=== PATIENT | male | born 1950 | race Caucasian/White ===

== ENCOUNTER 2017-05-29 22:39 | Emergency (ER) | payer OTHER ==
[~2017-05-29] VITALS: Ht 170.2 cm; Wt 85.0 kg
[~2017-05-29 22:39] MED LIST: ASPI325T PO; CLOP75 PO; COQ10 PO; METO50TA PO; NITR.6 SL; REST15CA PO; ZOCO80TA PO
[2017-05-29 22:41] VITALS: BP 170/89; PULSE 90; RESP 16; TEMP 97.7; O2SAT 98
[2017-05-29] MEDS ORDERED: ZOCO80TA PO (23:57)
[2017-05-30] MEDS ORDERED: ASPI325T PO
[2017-05-30] MEDS ORDERED: DIAZ5 PO
[2017-05-30] MEDS ORDERED: [UNRECOGNIZED DRUG - CODE] SL
[2017-05-30] MEDS ORDERED: METO50TA PO
[2017-05-30] MEDS ORDERED: PLAV75TA29 PO
--- NOTE | 2017-05-30 00:30 | PD ---
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 PT STATES TETANUS UTD PT STATES NO HEP B OR C VAX PT STATES ONLY PMHX POSITIVE FOR HEART STENTS PFSH Past Medical History Blood Disorders: No Cancer: No Cardiac Catheterization: Yes (STENT X3) Cardiovascular Problems: No Chest Pain: Yes (CAME IN WITH CP) Endocrine: No Genitourinary: No Immune Disorder: No Musculoskeletal: Yes (LEFT SHOULDER PAIN STARTED 6 MONTHS AGO) Neurologic: No Psychiatric: No Reproductive: No Respiratory: No Myocardial Infarction: Yes Tetanus Vaccination: > 5 Years Influenza Vaccination: No Social History Alcohol Use: Yes (WINE A GLASS A NIGHT) Tobacco Use: No Substance Use: No Allergies-Medications (Allergen,Severity, Reaction): Coded Allergies: No Known Allergies (Verified , 05/29/17) Reported Meds & Prescriptions Reported Meds & Active Scripts Active Kaletra (Lopinavir/Ritonavir) 200-50 Mg Tab 2 Tab PO Q12HR 23 Days Fill this prescription for a 23 day supply of Kaletra ONLY if advised to do so by either Employee Health OR the Emergency Department. Zidovudine 100 Mg Cap 300 Mg PO Q12HR 23 Days Lamivudine 150 Mg Tab 150 Mg PO BID 23 Days Kaletra (Lopinavir/Ritonavir) 200-50 Mg Tab 2 Tab PO Q12HR Fill this 5 day prescription first & begin taking Kaletra 12 hours after the first dose received in the Emergency Department as prescribed. Zidovudine 100 Mg Cap 300 Mg PO Q12HR 5 Days Lamivudine 150 Mg Tab 150 Mg PO BID Reported Valium (Diazepam) 5 Mg Tab 5 Mg PO HS PRN Nitroglycerin SL (Nitroglycerin) 0.6 Mg Subl 0.6 Mg SL DIRECTED PRN ONE TABLET UNDER THE TONGUE NEEDED FOR CHEST PAIN, MAY REPEAT EVERY FIVE MINUTES FOR A TOTAL OF 3 DOSES OR CALL 911 IF NO RELIEF Plavix (Clopidogrel Bisulfate) 75 Mg Tab 75 Mg PO DAILY Aspirin 325 Mg Tab 325 Mg PO DAILY Metoprolol Tartrate 50 Mg Tab 50 Mg PO BID Zocor (Simvastatin) 80 Mg Tab 80 Mg PO HS [Coq10] 100 Mg PO DAILY Review of Systems Except as stated in HPI: all other systems reviewed are Neg Physical Exam Narrative GENERAL: SKIN: Warm and dry. HEAD: Atraumatic. Normocephalic. EYES: Pupils equal and round. No scleral icterus. No injection or drainage. ENT: No nasal bleeding or discharge. Mucous membranes pink and moist. NECK: Trachea midline. No JVD. CARDIOVASCULAR: Regular rate and rhythm. RESPIRATORY: No accessory muscle use. Clear to auscultation. Breath sounds equal bilaterally. GASTROINTESTINAL: Abdomen soft, non-tender, nondistended. Hepatic and splenic margins not palpable. MUSCULOSKELETAL: Extremities without clubbing, cyanosis, or edema. No obvious deformities. RIGHT HAND PUNCTURE WOUND WHICH IS NOT ACTIVE BLEEDING NEUROLOGICAL: Awake and alert. No obvious cranial nerve deficits. Motor grossly within normal limits. Five out of 5 muscle strength in the arms and legs. Normal speech. PSYCHIATRIC: Appropriate mood and affect; insight and judgment normal. Data Data Last Documented VS Vital Signs Date Time Temp Pulse Resp B/P (MAP) Pulse Ox O2 Delivery O2 Flow Rate FiO2 05/30/17 01:07 05/29/17 22:41 97.7 90 16 98 Room Air Orders Orders Complete Blood Count With Diff (05/30/17 00:30) Comprehensive Metabolic Panel (05/30/17 00:30) Lamivudine (Epivir) (05/30/17 00:45) Zidovudine (Retrovir) (05/30/17 00:45) Lopinavir-Ritonavir 200-50 Mg (Kaletra 2 (05/30/17 00:45) Hepatitis B Vaccine (05/30/17 00:45) Labs Laboratory Tests Test 05/30/17 00:45 White Blood Count 8.6 TH/MM3 Red Blood Count 4.81 MIL/MM3 Hemoglobin 15.4 GM/DL Hematocrit 45.2 % Mean Corpuscular Volume 94.0 FL Mean Corpuscular Hemoglobin 32.1 PG Mean Corpuscular Hemoglobin Concent 34.1 % Red Cell Distribution Width 12.9 % Platelet Count 193 TH/MM3 Mean Platelet Volume 7.9 FL Neutrophils (%) (Auto) 61.2 % Lymphocytes (%) (Auto) 29.7 % Monocytes (%) (Auto) 7.5 % Eosinophils (%) (Auto) 1.2 % Basophils (%) (Auto) 0.4 % Neutrophils # (Auto) 5.2 TH/MM3 Lymphocytes # (Auto) 2.5 TH/MM3 Monocytes # (Auto) 0.6 TH/MM3 Eosinophils # (Auto) 0.1 TH/MM3 Basophils # (Auto) 0.0 TH/MM3 CBC Comment DIFF FINAL Differential Comment Blood Urea Nitrogen 24 MG/DL Creatinine 0.94 MG/DL Random Glucose 96 MG/DL Total Protein 8.2 GM/DL Albumin 4.3 GM/DL Calcium Level 9.0 MG/DL Alkaline Phosphatase 89 U/L Aspartate Amino Transf (AST/SGOT) 31 U/L Alanine Aminotransferase (ALT/SGPT) 41 U/L Total Bilirubin 1.0 MG/DL Sodium Level 139 MEQ/L Potassium Level 3.7 MEQ/L Chloride Level 107 MEQ/L Carbon Dioxide Level 24.9 MEQ/L Anion Gap 7 MEQ/L Estimat Glomerular Filtration Rate 80 ML/MIN MDM Medical Decision Making Medical Screen Exam Complete: Yes Emergency Medical Condition: Yes Medical Record Reviewed: Yes Differential Diagnosis needle stick exposure Narrative Course had a clear discussion with patient, in which patient stated that he was not vaccinated against hep b, i made patient aware of need for vaccination as well as initiating hiv triple therapy until threat of transmission is negative. advised that workers comp will adivised further testing to be done, [facility] [place] will initiate first test but multiple blood tests need to be done/perormed...needle stick exposure packet handed to patient.. Diagnosis Primary Impression: NEEDLE STICK EXPOSURE Scripts Lopinavir-Ritonavir (Kaletra) 200-50 Mg Tab 2 TAB PO Q12HR for Mgmt Viral Infection for 23 Days, #92 TAB 0 Refills Fill this prescription for a 23 day supply of Kaletra ONLY if advised to do so by either Employee Health OR the Emergency Department. Prov: Timoteo Swenson MD 05/30/17 Zidovudine (Zidovudine) 100 Mg Cap 300 MG PO Q12HR for Mgmt Viral Infection for 23 Days, #138 CAP 0 Refills Prov: Timoteo Swenson MD 05/30/17 Lamivudine (Lamivudine) 150 Mg Tab 150 MG PO BID for Mgmt Viral Infection for 23 Days, #46 TAB 0 Refills Prov: Timoteo Swenson MD 05/30/17 Lopinavir-Ritonavir (Kaletra) 200-50 Mg Tab 2 TAB PO Q12HR for Mgmt Viral Infection, #20 TAB 0 Refills Fill this 5 day prescription first & begin taking Kaletra 12 hours after the first dose received in the Emergency Department as prescribed. Prov: Timoteo Swenson MD 05/30/17 Zidovudine (Zidovudine) 100 Mg Cap 300 MG PO Q12HR for Mgmt Viral Infection for 5 Days, #30 CAP 0 Refills Prov: Timoteo Swenson MD 05/30/17 Lamivudine (Lamivudine) 150 Mg Tab 150 MG PO BID for Mgmt Viral Infection, #10 TAB 0 Refills Prov: Timoteo Swenson MD 05/30/17 Disposition: 01 DISCHARGE HOME Condition: Stable Timoteo Swenson MD May 30, 2017 00:30
[2017-05-30] MEDS ORDERED: LOPINAVIR/RITONAVIR 200 MG/50 MG TAB PO ONE (00:45)
[2017-05-30] MEDS ORDERED: ZIDOVUDINE 100 MG CAP PO ONE (00:45)
[2017-05-30] MEDS ORDERED: KALETRA200 PO ×2 (00:50→00:53)
[2017-05-30] MEDS ORDERED: ZIDO100C4 PO ×2 (00:50→00:53)
[2017-05-30] MEDS ORDERED: LAMI1TAB7 PO ×2 (00:50→00:53)
[2017-05-30 00:59] LABS: AUTOMATED NEUTROPHIL # 5.2 TH/MM3 (1.8-7.7); BASOPHIL % 0.4 % (0.0-2.0); EOSINOPHIL # 0.1 TH/MM3 (0-0.4); EOSINOPHIL % 1.2 % (0.0-4.0); HEMATOCRIT 45.2 % (39.0-51.0); HEMO FLAGS DIFF FINAL; LYMPH % 29.7 % (9.0-44.0); LYMPHOCYTE # 2.5 TH/MM3 (1.0-4.8); MEAN CORPUSCULAR HEMOGLOBIN 32.1 PG (27.0-34.0); MEAN CORPUSCULAR HGB CONC 34.1 % (32.0-36.0); MONO % 7.5 % (0.0-8.0); NEUT % 61.2 % (16.0-70.0); PLATELET COUNT 193 TH/MM3 (150-450); RED BLOOD COUNT 4.81 MIL/MM3 (4.50-5.90); RED CELL DISTRIBUTION WIDTH 12.9 % (11.6-17.2); WHITE BLOOD COUNT 8.6 TH/MM3 (4.0-11.0)
[2017-05-30 01:12] LABS: ALT (GPT) 41 U/L (12-78); ANION GAP 7 MEQ/L (5-15); AST (GOT) 31 U/L (15-37); BICARBONATE 24.9 MEQ/L (21.0-32.0); BLOOD UREA NITROGEN 24 MG/DL (7-18); CHLORIDE 107 MEQ/L (98-107); GLOMERULAR FILTRATION RATE 80 ML/MIN (>89); POTASSIUM 3.7 MEQ/L (3.5-5.1); SODIUM (NA) 139 MEQ/L (136-145)
[2017-05-30 01:14] LABS: ALKALINE PHOSPHATASE 89 U/L (45-117)
== END 2017-05-30 01:43 | disposition home or self-care (01) ==
LOC: NEPD 22:39
DX: Z77.21 Contact with and (suspected) exposure to potentially hazardous body fluids (principal); W46.1XXA Contact with contaminated hypodermic needle, initial encounter; Y92.59 Other trade areas as the place of occurrence of the external cause; Y99.0 Civilian activity done for income or pay
CPT/HCPCS: 80053; 85025; 86317; 86803; 87389; 99284